=== PATIENT | female | born 1995 | race Two or more races ===

== ENCOUNTER 2018-01-14 10:57 | Emergency (ER) | payer OTHER ==
[2018-01-14 11:07] VITALS: BP 108/64; PULSE 72; TEMP 98.6; BMI 32.1
--- NOTE | 2018-01-14 11:35 | PDOC ---
History of Present Illness - General Chief Complaint: Blood/Body Fluid Exposure SJR Stated Complaint: BLOOD EXPOSURE Time Seen by Provider: 01/14/18 11:17 History Source: Patient Exam Limitations: No Limitations - History of Present Illness Initial Comments: 01/14/18 11:33 22 yr employee at [employer] states she was setting up a sterile tray in the OR when she accidentaly pricked her right index finger on a sterile tool on the tray. The tool had not been used on a patient. Pt was wearing gloves, noted blood under the glove, none on the outside. pt states her tetanus is UTD. Timing/Duration: reports: just prior to arrival Severity: Yes: mild Location: reports: extremities Past History - Past Medical History Allergies/Adverse Reactions: Allergies Allergy/AdvReac Type Severity Reaction Status Date / Time No Known Allergies Allergy Verified 01/14/18 11:22 Home Medications: Ambulatory Orders NK [No Known Home Medication] 01/14/18 Cancer: No COPD: No CHF: No Dementia: No Kidney Stones: No - Surgical History Appendectomy: No Cholecystectomy: No - Immunization History Immunization Up to Date: No - Suicide/Smoking/Psychosocial Hx Smoking History: Never smoked Have you smoked in the past 12 months: No Information on smoking cessation initiated: No Hx Alcohol Use: No Drug/Substance Use Hx: No *Physical Exam - Vital Signs Last Vital Signs Temp Pulse Resp BP Pulse Ox 98.6 F 72 18 108/64 98 01/14/18 11:02 01/14/18 11:02 01/14/18 11:02 01/14/18 11:02 01/14/18 11:02 - Physical Exam General Appearance: Yes: Nourished, Appropriately Dressed HEENT: positive: EOMI, UMBERTO Neck: positive: Supple Respiratory/Chest: positive: Lungs Clear, Normal Breath Sounds Cardiovascular: positive: Regular Rhythm, Regular Rate Extremity: positive: Normal Capillary Refill, Normal Inspection, Normal Range of Motion, Other (right index finger with small pinprick noted, no bleeding no redness or swelling ) Integumentary: positive: Normal Color, Dry, Warm Neurologic: positive: Fully Oriented, Alert, Normal Mood/Affect, Normal Response , Motor Strength 5/5 Procedures - Laceration/Wound Repair Right Distal Finger 2nd digit Wound's Depth, Shape: superficial (pin prick puncture wound ) Sterile Dressing Applied: Yes Medical Decision Making - Medical Decision Making 01/14/18 11:35 accidental prick to finger using sterile equipment at work no risk for exposure to contaminated blood the tray was sterile when pt was setting up and was stuck then. washed with betadine, bacitracin and bandaid placed. *DC/Admit/Observation/Transfer Diagnosis at time of Disposition: Puncture wound - Discharge Dispostion Disposition: HOME Condition at time of disposition: Good - Referrals - Patient Instructions Additional Instructions: keep the area clean and dry with soap and water apply bacitracin daily with bandiad until healed - Post Discharge Activity Forms/Work/School Notes: Back to Work
== END 2018-01-14 11:42 | disposition home or self-care (01) ==
LOC: JERFT 10:57
DX: S61.230A Puncture wound without foreign body of right index finger without damage to nail, initial encounter (principal); W22.8XXA Striking against or struck by other objects, initial encounter; Y92.234 Operating room of hospital as the place of occurrence of the external cause; Y99.0 Civilian activity done for income or pay
CPT/HCPCS: 36415; 87389; 99281-25

== ENCOUNTER 2018-05-13 12:07 | Emergency (ER) | payer SELFPAY ==
[2018-05-13 12:18] VITALS: TEMP 98.4; BMI 106.0
[2018-05-13 12:36] VITALS: BP 124/69; PULSE 70
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
[2018-05-13] MEDS ORDERED: ALPRAZolam 0.25 MG TABLET PO ONE (12:55)
[2018-05-13] MEDS ORDERED: ALPRAZolam 0.25 MG TABLET ONE (13:06)
[2018-05-13 13:16] LABS: HCG,QUALITATIVE URINE Positive
[2018-05-13 13:20] LABS: BASO % 0.6 % (0-2.0); EOS % 4.8 % (0-4.5); HEMATOCRIT 41.1 % (32.4-45.2); HEMOGLOBIN 14.5 GM/dL (10.7-15.3); LYMPH % 27.9 % (8-40); MCH 32.8 pg (25.7-33.7); MCHC 35.3 g/dl (32.0-36.0); MEAN CELL VOLUME 92.8 fl (80-96); MEAN PLT VOLUME 8.3 fl (7.5-11.1); MONO % 6.5 % (3.8-10.2); NEUT % 60.2 % (42.8-82.8); PLATELET COUNT 234 K/MM3 (134-434); RBC 4.42 M/mm3 (3.60-5.2); RDW 12.9 % (11.6-15.6); WHITE BLOOD COUNT 8.8 K/mm3 (4.0-10.0)
[2018-05-13 13:26] LABS: COCAINE, UR NEGATIVE ng/ml (CUTOFF=300); METHADONE, UR NEGATIVE ng/ml (CUTOFF=300); OPIATES, URI NEGATIVE ng/ml (CUTOFF=300); PHENCYCLIDINE,URINE NEGATIVE ng/ml (CUTOFF=25); URINE AMPHETAMINES NEGATIVE ng/ml (CUTOFF=500); URINE BARBITURATES NEGATIVE ng/ml (CUTOFF=200); URINE BENZODIAZEPINES NEGATIVE ng/ml (CUTOFF=200)
[2018-05-13 13:32] LABS: URINE APPEARANCE CLEAR; URINE BILIRUBIN NEGATIVE (<2.0 mg/dL); URINE COLOR YELLOW; URINE GLUCOSE (UA) NEGATIVE (NEGATIVE); URINE KETONE NEGATIVE (NEGATIVE); URINE LEUK ESTERASE NEGATIVE (NEGATIVE); URINE NITRITE NEGATIVE (NEGATIVE); URINE PROTEIN NEGATIVE (NEGATIVE)
[2018-05-13 14:20] LABS: ALBUMIN 3.7 g/dl (3.4-5.0); ALK PHOS 92 U/L (45-117); ANION GAP 6 MMOL/L (8-16); BILIRUBIN,TOTAL 0.3 mg/dL (0.2-1); BLOOD UREA NITROGEN 5 mg/dL (7-18); CALCIUM 8.3 mg/dL (8.5-10.1); CHLORIDE 105 mmol/L (98-107); CO2 26 mmol/L (21-32); CREATININE 0.7 mg/dL (0.55-1.3); GLUCOSE,RANDOM 82 mg/dL (74-106); POTASSIUM 3.9 mmol/L (3.5-5.1); SGOT/AST 16 U/L (15-37); SGPT/ALT 11 U/L (13-61); SODIUM 137 mmol/L (136-145); TOT PROT 6.7 g/dl (6.4-8.2)
--- NOTE | 2018-05-14 02:32 | EKG ---
Test Reason : Blood Pressure : / mmHG Vent. Rate : 068 BPM Atrial Rate : 068 BPM P-R Int : 142 ms QRS Dur : 078 ms QT Int : 364 ms P-R-T Axes : 024 043 050 degrees QTc Int : 387 ms NORMAL SINUS RHYTHM NORMAL ECG NO PREVIOUS ECGS AVAILABLE Confirmed by FLORENCE PARKER MD ([id number]) on 05/14/2018 2:32:16 AM Referred By: Confirmed By:FLORENCE PARKER MD
== END 2018-05-13 15:04 | disposition home or self-care (01) ==
LOC: JER 12:07
DX: Z33.1 Pregnant state, incidental (principal); F41.9 Anxiety disorder, unspecified
CPT/HCPCS: 36415; 76817-TC; 80053; 80307; 81003; 84443; 84702; 84703; 85025; 93005; 93010; 99282-25

== ENCOUNTER 2018-06-16 10:24 | Emergency (ER) | payer SELFPAY ==
[2018-06-16 10:48] VITALS: TEMP 99; BMI 32.0
[2018-06-16] MEDS ORDERED: METOCLOPRAMIDE HCL INJECTION 10 MG/2 ML VIAL IVPB ONE (12:02)
[2018-06-16] MEDS ORDERED: SODIUM CHLORIDE 1,000 ML IV ONE (12:02)
[2018-06-16] MEDS ORDERED: ACETAMINOPHEN 1000 MG/100 ML VIAL (NON FORMULARY) IVPB ONE (12:03)
[2018-06-16] MEDS ORDERED: ACETAMINOPHEN INJECTION 100 ML IVPB ONE (12:15)
[2018-06-16] MEDS ORDERED: METOCLOPRAMIDE HCL INJECTION 10 MG/2 ML VIAL ONE (12:15)
--- NOTE | 2018-06-16 12:20 | PDOC ---
History of Present Illness - General History Source: Patient Exam Limitations: No Limitations - History of Present Illness Initial Comments: 06/16/18 12:45 The patient is a 22 year old female with a past medical history of attention- deficit disorder who presents to the emergency department for evaluation of headache with nausea and vomiting since last night. The patient reports worsening frontal headache since she awoke at 2am last night. She describes the headache as non radiating, pulsating, and pressure like since she awoke. Patient notes she had a headache before she went to sleep at 10pm. She reports 3 episodes of non bloody emesis since she awoke. Patient states she ate rotisserie chicken and rice yesterday prior to sleeping. Patient reports taking 2 ibuprofen with no relief to her symptoms. She currently endorses throbbing headache, photosensitivity, lightheadedness, and nausea. Patients LMP was on . The patient denies family history of migraines, prior hospitalizations for headache, prior head CTs, changes in diet, recent stressors, or any head trauma. Patient denies chest pain, shortness of breath, rhinorrhea, nasal congestion, fevers, chills, diarrhea, constipation, dysuria, hematuria, and urinary urgency/frequency. Allergies: No Known Allergies Social History: No reported alcohol, cigarette, or drug use. <Paulette Chiu - Last Filed: 06/16/18 12:47> <Lopez Carrero - Last Filed: 06/16/18 15:18> - General Chief Complaint: Weakness Stated Complaint: TINGLING,NAUSEA,VOMITING Time Seen by Provider: 06/16/18 11:13 Past History <Paulette Chiu - Last Filed: 06/16/18 12:47> - Past Medical History Cancer: No COPD: No CHF: No Dementia: No Kidney Stones: No - Surgical History Appendectomy: No Cholecystectomy: No - Immunization History Immunization Up to Date: No - Suicide/Smoking/Psychosocial Hx Smoking History: Current some day smoker Have you smoked in the past 12 months: Yes Number of Cigarettes Smoked Daily: 3 Information on smoking cessation initiated: No Hx Alcohol Use: No Drug/Substance Use Hx: No <Lopez Carrero - Last Filed: 06/16/18 15:18> - Past Medical History Allergies/Adverse Reactions: Allergies Allergy/AdvReac Type Severity Reaction Status Date / Time No Known Allergies Allergy Verified 01/14/18 11:22 Home Medications: Ambulatory Orders Dextroamphetamine/Amphetamine [Adderall 10 mg Tablet] 10 mg PO ASDIR 06/16/18 Review of Systems - Review of Systems Constitutional: No: Chills, Fever HEENTM: No: Recent change in vision Respiratory: No: Cough, Shortness of Breath Cardiac (ROS): No: Chest Pain, Syncope ABD/GI: Yes: Vomiting. No: Diarrhea Neurological: Yes: Headache. No: Weakness All Other Systems: Reviewed and Negative <Lopez Carrero - Last Filed: 06/16/18 15:18> *Physical Exam - Vital Signs Last Vital Signs Temp Pulse Resp BP Pulse Ox 99.0 F 65 17 109/50 L 100 06/16/18 10:43 06/16/18 10:43 06/16/18 10:43 06/16/18 10:43 06/16/18 10:43 - Physical Exam Comments: 06/16/18 12:46 GENERAL: The patient is awake, alert, and fully oriented, in no acute distress. HEAD: Normal with no signs of trauma. EYES: Pupils equal, round and reactive to light, extraocular movements intact, sclera anicteric, conjunctiva clear with no pallor. ENT: Ears normal, nares patent, oropharynx clear. Moist mucous membranes. NECK: Normal range of motion, supple without lymphadenopathy, JVD, or masses. LUNGS: Breath sounds equal, clear to auscultation bilaterally. No wheeze/ crackles. HEART: Regular rate and rhythm, normal S1 and S2. ABDOMEN: Soft/nontender/nondistended. BS wnl. No guarding or rebound. No palpable masses. No hepatosplenomegaly. EXTREMITIES: Normal range of motion, no edema. No clubbing or cyanosis. No cords, erythema, or tenderness. PSYCH: Normal mood, normal affect. SKIN: Warm, Dry, normal turgor, no rashes or lesions noted. NEURO: Mental status: The patient is alert and oriented x3. Cranial nerves: Cranial nerves II through XII are intact Motor: The upper extremities are 5 over 5 in all muscle groups. The lower extremities are 5 over 5 in all muscle groups. No pronator drift. Sensation: Sensation is intact to light touch throughout. Cerebellar: Nyssei-faziyu-wfsw is normal in both upper extremities. Heel-knee- welch is normal in both lower extremities. Reflexes: 2+ and symmetric in the upper and lower extremities. Gait: Normal. Heel and toe walking are normal. Tandem gait is normal. <Paulette Chiu - Last Filed: 06/16/18 12:47> - Vital Signs Last Vital Signs Temp Pulse Resp BP Pulse Ox 99.0 F 65 17 109/50 L 100 06/16/18 10:43 06/16/18 10:43 06/16/18 10:43 06/16/18 10:43 06/16/18 10:43 <Lopez Carrero - Last Filed: 06/16/18 15:18> Heart Score/ECG Review #1 ECG reviewed & interpreted by me at: 10:30 General ECG Interpretation: Sinus Rhythm, Normal Rate (63), Normal Intervals ( IRBBB QRS 100), No acute ischemic changes <Lopez Carrero - Last Filed: 06/16/18 15:18> ED Treatment Course - LABORATORY CBC & Chemistry Diagram: 06/16/18 12:27 06/16/18 12:27 - Medications Given in the ED: ED Medications Discontinued Medications Generic Name Dose Route Start Last Admin Trade Name Freq PRN Reason Stop Dose Admin Acetaminophen 1,000 mg 06/16/18 12:03 06/16/18 12:29 Ofirmev Injection - IVPB 06/16/18 12:04 1,000 mg ONCE ONE Administration Metoclopramide HCl 10 mg 06/16/18 12:02 06/16/18 12:29 Reglan Injection - IVPB 06/16/18 12:03 10 mg ONCE ONE Administration <Paulette Chiu - Last Filed: 06/16/18 12:47> - LABORATORY CBC & Chemistry Diagram: 06/16/18 12:27 06/16/18 12:27 <Lopez Carrero - Last Filed: 06/16/18 15:18> Medical Decision Making - Medical Decision Making 06/16/18 12:21 Healthy 22-year-old female with history of ADD on Adderall presents with headache since last night. Patient developed gradual onset of mild frontal headache last night around 10 PM, was awoken from sleep overnight with more generalized throbbing headache with increasing severity, associated with nonbloody nonbilious vomiting, mild photophobia and phonophobia. No fevers or chills, no neck stiffness. Has history of occasional headaches in the past but not this severe, denies any head injury, has never had neurological evaluation or brain imaging. afebrile lying in stretcher with eye closed but responds to verbal, ambulating comfortably head nontender, neck supple neuro exam normal Healthy 22-year-old female with gradual onset mild headache, normal neurological exam and afebrile, no other red flags on history or physical exam. Likely primary type headache such as migraine or tension headache. Check electrolytes given vomiting IV fluids, IV Tylenol, IV antiemetic Reassess, if symptoms do not improve consider imaging 06/16/18 14:45 labs wnl, moderate improvement with tylenol/reglan. ct head without acute pathology. remains neuro intact. trial of toradol, reasses and dispo to outpt neuro f/u 06/16/18 15:16 Much better after Toradol, headache now 07/01. Remains neurologically intact, tolerating liquids. Agrees with discharge plan, provided neurology referral, understands return criteria. <Lopez Carrero - Last Filed: 06/16/18 15:18> *DC/Admit/Observation/Transfer - Attestations Scribe Attestion: 06/16/18 12:46 Documentation prepared by Paulette Chiu, acting as medical office receptionist assistant for Lopez Carrero MD. <Paulette Chiu - Last Filed: 06/16/18 12:47> <Lopez Carrero - Last Filed: 06/16/18 15:18> Diagnosis at time of Disposition: Headache Qualifiers: Headache type: unspecified Headache chronicity pattern: acute headache Intractability: not intractable Qualified Code(s): R51 - Headache - Discharge Dispostion Disposition: HOME Condition at time of disposition: Improved - Referrals Referrals: Black Myles DO [Staff Physician] - - Patient Instructions Printed Discharge Instructions: DI for Headache Additional Instructions: Activity as tolerated. Stay hydrated. Blood tests and a CAT scan of the head showed no abnormalities today. The headache may be due to a primary headache syndrome such as migraines or tension headaches. Tylenol 1000 mg every 8 hours and/or ibuprofen 600 mg every 8 hours as needed for pain. Continue your medications as previously prescribed by your physician. You should follow up with your primary doctor as soon as possible regarding today's emergency department visit. Also consider seeing a neurologist, consider calling Dr. Myles for an appointment. Return to the emergency department for any new or concerning symptoms, particularly persistent or worsening headache, fevers or chills, neck stiffness or persistent vomiting, focal weakness. - Post Discharge Activity Forms/Work/School Notes: Back to Work
[2018-06-16 12:52] LABS: BASO % 0.1 % (0-2.0); EOS % 1.2 % (0-4.5); HEMOGLOBIN 14.5 GM/dL (10.7-15.3); LYMPH % 6.5 % (8-40); MCH 32.7 pg (25.7-33.7); MCHC 35.3 g/dl (32.0-36.0); MEAN CELL VOLUME 92.7 fl (80-96); MEAN PLT VOLUME 8.6 fl (7.5-11.1); MONO % 5.5 % (3.8-10.2); NEUT % 86.7 % (42.8-82.8); PLATELET COUNT 220 K/MM3 (134-434); RBC 4.42 M/mm3 (3.60-5.2); WHITE BLOOD COUNT 8.2 K/mm3 (4.0-10.0)
[2018-06-16 13:14] LABS: ALBUMIN 3.8 g/dl (3.4-5.0); ALK PHOS 106 U/L (45-117); ANION GAP 7 MMOL/L (8-16); BILIRUBIN,TOTAL 0.6 mg/dL (0.2-1); BLOOD UREA NITROGEN 10 mg/dL (7-18); CHLORIDE 107 mmol/L (98-107); CO2 25 mmol/L (21-32); CREATININE 0.6 mg/dL (0.55-1.3); GLUCOSE,RANDOM 80 mg/dL (74-106); POTASSIUM 3.6 mmol/L (3.5-5.1); SGOT/AST 15 U/L (15-37); SGPT/ALT 9 U/L (13-61); SODIUM 139 mmol/L (136-145); TOT PROT 6.5 g/dl (6.4-8.2)
[2018-06-16] MEDS ORDERED: KETOROLAC TROMETHAMINE 30 MG/1 ML VIAL IVPUSH ONE (14:44)
[2018-06-16] MEDS ORDERED: KETOROLAC TROMETHAMINE 30 MG/1 ML VIAL ONE (14:47)
[2018-06-16 14:59] VITALS: BP 101/57; PULSE 77
--- NOTE | 2018-06-16 21:58 | EKG ---
Test Reason : Blood Pressure : / mmHG Vent. Rate : 063 BPM Atrial Rate : 063 BPM P-R Int : 148 ms QRS Dur : 100 ms QT Int : 398 ms P-R-T Axes : 000 057 057 degrees QTc Int : 407 ms NORMAL SINUS RHYTHM RSR' OR QR PATTERN IN V1 SUGGESTS RIGHT VENTRICULAR CONDUCTION DELAY BORDERLINE ECG WHEN COMPARED WITH ECG OF 13-MAY-2018 13:09, NO SIGNIFICANT CHANGE WAS FOUND Confirmed by MD RAQUEL, LISA ([id number]) on 06/16/2018 9:58:04 PM Referred By: Confirmed By:LISA GARCÍA MD
== END 2018-06-16 15:24 | disposition home or self-care (01) ==
LOC: JER 10:24
PROC: 3E033GC Introduction of Other Therapeutic Substance into Peripheral Vein, Percutaneous Approach (ICD-10-PCS; principal; 2018-06-16)
PROC: 3E033NZ Introduction of Analgesics, Hypnotics, Sedatives into Peripheral Vein, Percutaneous Approach (ICD-10-PCS; 2018-06-16)
PROC: 3E0333Z Introduction of Anti-inflammatory into Peripheral Vein, Percutaneous Approach (ICD-10-PCS; 2018-06-16)
DX: R51 Headache (principal); F98.8 Other specified behavioral and emotional disorders with onset usually occurring in childhood and adolescence
CPT/HCPCS: 36415; 70450-TC; 80053; 84703; 85025; 93005; 93010; 99283-25; J0131; J7030